=== PATIENT | female | born 1975 | race Caucasian/White ===

== ENCOUNTER → 2022-02-06 | Outpatient (CLI) | payer OTHER | LOC: KOH-I 01-29 10:30 | DX: M25.571 Pain in right ankle and joints of right foot (principal); M79.2 Neuralgia and neuritis, unspecified; M21.171 Varus deformity, not elsewhere classified, right ankle; M76.891 Other specified enthesopathies of right lower limb, excluding foot | CPT/HCPCS: 73718 ==